=== PATIENT | male | born 1975 | race Two or more races ===

== ENCOUNTER 2019-10-07 17:47 | Emergency (ER) | payer BC ==
[2019-10-07 17:55] VITALS: BP 143/89
--- NOTE | 2019-10-07 18:58 | ER Document Report ---
ED Hand/Wrist Injury - General Chief Complaint: Finger Injury Stated Complaint: LACERATION TO RIGHT FOURTH DIGIT Mode of Arrival: Ambulatory Information source: Patient Notes: 43-year-old male with no previous medical problems presents emergency room with a laceration to his right ring finger. Patient states he cut it on a piece of wire on the edge of a fence when leaving work. Tetanus is up-to-date. Bleeding is controlled. Patient is right-handed. Denies any other complaints or concerns. - HPI Injury to: Ring finger Onset: This afternoon Where: Home - Related Data Allergies/Adverse Reactions: Poultry Allergy (Verified 10/07/19 18:33) Past Medical History - General Information source: Patient - Social History Smoking Status: Never Smoker Frequency of alcohol use: Occasional Drug Abuse: None Lives with: Family Family History: Reviewed & Not Pertinent Patient has suicidal ideation: No Patient has homicidal ideation: No - Medical History Medical History: Negative Review of Systems - Review of Systems Constitutional: No symptoms reported EENT: No symptoms reported Cardiovascular: No symptoms reported Respiratory: No symptoms reported Gastrointestinal: No symptoms reported Musculoskeletal: No symptoms reported Skin: Other - Laceration right ring finger Hematologic/Lymphatic: No symptoms reported Neurological/Psychological: No symptoms reported -: Yes All other systems reviewed and negative Physical Exam - Vital signs Vitals: Temp Pulse Resp BP Pulse Ox 98.9 F 76 18 143/89 H 98 10/07/19 17:54 10/07/19 17:54 10/07/19 17:54 10/07/19 17:54 10/07/19 17:54 - General General appearance: Appears well, Alert In distress: Mild - Respiratory Respiratory status: No respiratory distress Chest status: Nontender Breath sounds: Normal Chest palpation: Normal - Cardiovascular Rhythm: Regular Heart sounds: Normal auscultation Murmur: No - Extremities Hand: Tender, Laceration - There is a 1.5 cm flap laceration noted on the palmar aspect base of the right ring finger. Bleeding is controlled. Full range of motion, no tendon injury noted., Other - Full range of motion with flexion and extension of the right ring finger. No obvious deformity noted. - Neurological Cognition: Normal Orientation: AAOx4 Notes: Positive right radial pulse. Capillary refill less than 3 seconds. Sensation intact - Skin Skin Temperature: Warm Skin Moisture: Dry Skin irregularity: Laceration Location of irregularity: Other - 1.5 Centimeter flap laceration noted to the base on the palmar aspect of the right ring finger. Bleeding is controlled. Course - Vital Signs Vital signs: Temp Pulse Resp BP Pulse Ox 98.9 F 76 18 143/89 H 98 10/07/19 18:34 10/07/19 17:54 10/07/19 17:54 10/07/19 17:54 10/07/19 17:54 Procedures - Laceration/Wound Repair Right Volar 4th digit Time completed: 20:03 Wound length (cm): 1.5 Wound's Depth, Shape: Superficial, Irregular, Flap Laceration pre-procedure: Sterile PPE donned, Sterile drapes applied Anesthetic type: 1% Lidocaine Volume Anesthetic (mLs): 1 Wound explored: Clean, No foreign body removed Irrigated w/ Saline (mLs): 10 Wound Repaired With: Sutures Suture Size/Type: 5:0, Nylon Number of Sutures: 7 Layer Closure?: No Post-procedure wound care: Sterile dressing applied Post-procedure NV exam normal: Yes Complications: No Discharge - Discharge Clinical Impression: Laceration of right index finger Disposition: HOME, SELF-CARE Instructions: Laceration Care ([facility]) Additional Instructions: May remove dressing in 24 hours. Keep wound clean and dry. Do not get wet. Sutures out 8 to 10 days.
[2019-10-07] MEDS ORDERED: LIDOCAINE 1% INJ-PF (10 MG/ML) 30 ML SDV INJ ONE (19:16)
== END 2019-10-07 20:20 | disposition home or self-care (01) ==
LOC: ER 17:47
PROC: 0HQFXZZ Repair Right Hand Skin, External Approach (ICD-10-PCS; principal; 2019-10-07)
DX: S61.214A Laceration without foreign body of right ring finger without damage to nail, initial encounter (principal); W45.8XXA Other foreign body or object entering through skin, initial encounter
CPT/HCPCS: 99282

== ENCOUNTER 2019-10-17 09:06 | Emergency (ER) | payer BC ==
[2019-10-17 09:11] VITALS: BP 146/98
--- NOTE | 2019-10-17 09:17 | ER Document Report ---
ED Suture/Wound Recheck - General Chief Complaint: Suture Removal Stated Complaint: SUTURE REMOVAL/FINGER Mode of Arrival: Ambulatory Information source: Patient - HPI Notes: 43-year-old male presents emergency room for suture removal from a laceration he sustained to his right fourth finger, proximal to the PIP that was approximately 1.5 cm long that he sustained after he cut himself on on fencing. His tetanus is up-to-date. He received 7 simple sutures. Denies fevers, chills, chest pain,palpitations, shortness of breath, dyspnea, nausea, vomiting, diarrhea, numbness or tingling in bilateral upper or lower extremities equally, muscle paralysis, weakness in bilateral upper or lower extremities equally or rash. - Related Data Allergies/Adverse Reactions: Poultry Allergy (Verified 10/07/19 18:33) Past Medical History - General Information source: Patient - Social History Smoking Status: Unknown if Ever Smoked Family History: Reviewed & Not Pertinent Review of Systems - Review of Systems Constitutional: No symptoms reported EENT: No symptoms reported Cardiovascular: No symptoms reported Respiratory: No symptoms reported Gastrointestinal: No symptoms reported Genitourinary: No symptoms reported Male Genitourinary: No symptoms reported Musculoskeletal: No symptoms reported Skin: See HPI Hematologic/Lymphatic: No symptoms reported Neurological/Psychological: No symptoms reported Physical Exam - Vital signs Vitals: Temp Pulse Resp BP Pulse Ox 97.6 F 77 16 146/98 H 99 10/17/19 09:10 10/17/19 09:10 10/17/19 09:10 10/17/19 09:10 10/17/19 09:10 - Notes Notes: PHYSICAL EXAMINATION:reviewed vital signs by RN GENERAL: Well-appearing, well-nourished and in no acute distress. HEAD: Atraumatic, normocephalic. EYES: Pupils equal round and reactive to light, extraocular movements intact, sclera anicteric, conjunctiva are normal. ENT: Nares patent, oropharynx clear without exudates. Moist mucous membranes. NECK: Normal range of motion, supple without lymphadenopathy LUNGS: Breath sounds clear to auscultation bilaterally and equal. No wheezes rales or rhonchi. HEART: Regular rate and rhythm without murmurs ABDOMEN: Soft, nontender, nondistended abdomen. No guarding, no rebound. No masses appreciated. Musculoskeletal: Normal range of motion, no pitting or edema. No cyanosis. NEUROLOGICAL: Cranial nerves grossly intact. Normal speech, normal gait. Normal sensory, motor exams PSYCH: Normal mood, normal affect. SKIN: Warm, Dry, normal turgor, no rashes or lesions noted. 1.5cm linear laceration that is well-healed and wound approximated to base of fourth phalange on dorsal aspect. Engraver Picture + 2 BUE equally.radial pulses + 2 BUE equally. Negative kanavels sign.No vascular compromise.No body crepitus or focal area of TTP. no pain with opposition, flexion, extension, abduction and adduction on on right hand/fingers. Motor and sensory function of ulnar, radial, medial nerves intact bilaterally and equally. strength 5/5 in BUE equally. Course - Re-evaluation Re-evalutation: 10/17/19 09:22 Patient verbalized consent to remove stitches. Wound well approximated at wound edges, well-healing 7 simple sutures were removed with an 11 blade and tweezers. Patient tolerated procedure without incident. After performing a Medical Screening Examination, I estimate there is LOW risk for OPEN FRACTURE, COMPARTMENT SYNDROME, TENDON RUPTURE, ACUTE NEUROVASCULAR INJURY, or RETAINED FOREIGN BODY, thus I consider the discharge disposition reasonable. Also, there is no evidence or peritonitis, sepsis, or toxicity. I have reevaluated this patient multiple times and no significant life threatening changes are noted. The patient and I have discussed the diagnosis and risks, and we agree with discharging home with close follow-up with the understanding that symptoms and presentations can change. We also discussed returning to the Emergency Department immediately if new or worsening symptoms occur. We have discussed the symptoms which are most concerning (e.g., changing or worsening pain, fever, numbness, weakness, cool or painful digits) that necessitate immedi ate return. - Vital Signs Vital signs: Temp Pulse Resp BP Pulse Ox 97.6 F 77 16 146/98 H 99 10/17/19 09:10 10/17/19 09:10 10/17/19 09:10 10/17/19 09:10 10/17/19 09:10 Discharge - Discharge Clinical Impression: Visit for suture removal Condition: Stable Disposition: HOME, SELF-CARE Instructions: Suture Removal Additional Instructions: Your sutures removed today. There is no signs of infection. If you notice any redness, swelling, drainage, tenderness to the area, return to the emergency room or follow-up with your primary care provider. Your tetanus is up-to-date. Monitor for any fevers or chills. Return immediately for any new or worsening symptoms. Follow up with primary care provider, call tomorrow to make followup appointment. Referrals: MARISABEL MCCOY MD [[facility] STAFF] - Follow up as needed
== END 2019-10-17 09:30 | disposition home or self-care (01) ==
LOC: ER 09:06
DX: S61.214D Laceration without foreign body of right ring finger without damage to nail, subsequent encounter (principal); W45.8XXD Other foreign body or object entering through skin, subsequent encounter; Z91.018 Allergy to other foods